=== PATIENT | female | born 1995 | race Caucasian/White ===

== ENCOUNTER 2025-01-21 14:01 | Inpatient (IN) | payer OTHER, SELFPAY ==
[2025-01-21 14:33] VITALS: BP 119/77; BMI 24.3
[2025-01-21 16:27] LABS: % Basophils 0.3 % (0-2); % Eosinophils 0.1 % (0-6); % Immature Granulocytes 0.5 % (0-0.5); % Lymphocytes 5.9 % (20.5-51.1); % Monocytes 3.5 % (1.7-9.3); % Neutrophils 89.7 % (42.2-75.2); Absolute Immature Granulocytes 0.1 10^3/uL (0-0.05); Absolute Lymphocytes 0.9 10^3/uL (1.2-3.4); Absolute Monocytes 0.5 10^3/uL (0.1-0.6); Hematocrit 37.2 % (37.0-47.0); Hemoglobin 13.5 g/dL (12.0-16.0); Mean Corp Hgb Conc. 36.3 g/dL (33.0-37.0); Mean Corpuscular Hgb 33.2 pg (27.0-31.0); Mean Corpuscular Volume 91.4 fL (81.0-99.0); Mean Platelet Volume 9.8 fL (7.4-10.4); Nucleated Red Blood Cells % 0 %; Platelet Count 206 10^3/uL (130-400); Red Blood Cell Count 4.07 10^6/uL (4.20-5.40); Red Cell Dist. Width 12.7 % (11.5-14.5); White Blood Cell Count 15.6 10^3/uL (4.8-10.8)
[2025-01-21] MEDS: TYLENOL 650 MG PO ×2 (16:48→20:48)
[2025-01-21] MEDS: MOTRIN 600 MG PO ×2 (16:50→22:54)
[2025-01-21] MEDS: PITOCIN 10 UNITS IM (19:00)
[2025-01-22] MEDS: TYLENOL 650 MG PO ×4 (03:17→19:43)
[2025-01-22] MEDS: MOTRIN 600 MG PO ×3 (04:54→19:43)
[2025-01-22 05:24] LABS: Hematocrit 32.8 % (37.0-47.0); Hemoglobin 11.7 g/dL (12.0-16.0)
[2025-01-22] MEDS: PRENATAL PLUS 1 TABLET PO (07:46)
[2025-01-22 14:23] LABS: Syphilis/T. pallidum Ab Reflex Negative (Negative)
[2025-01-23] MEDS: TYLENOL 650 MG PO ×2 (08:10→12:41)
[2025-01-23] MEDS: MOTRIN 600 MG PO (08:11)
[2025-01-23] MEDS: PRENATAL PLUS 1 TABLET PO (08:12)
== END 2025-01-23 13:19 | disposition home or self-care (01) | DRG 807 ==
LOC: LDRP 14:01
PROVIDERS: Obstetrics & Gynecology; ADMITTING PHYSICIAN Obstetrics & Gynecology
PROC: 10907ZC Drainage of Amniotic Fluid, Therapeutic from Products of Conception, Via Natural or Artificial Opening (ICD-10-PCS; 2025-01-21)
PROC: 0KQM0ZZ Repair Perineum Muscle, Open Approach (ICD-10-PCS; 2025-01-21)
PROC: 10E0XZZ Delivery of Products of Conception, External Approach (ICD-10-PCS; 2025-01-21)
DX: O62.3 Precipitate labor (principal); Z37.0 Single live birth; O77.0 Labor and delivery complicated by meconium in amniotic fluid; O70.1 Second degree perineal laceration during delivery; Z3A.39 39 weeks gestation of pregnancy
CPT/HCPCS: 85014; 85018; 85025; 86780; 86850; 86900; 86901